=== PATIENT | male | born 1955 | race Caucasian/White ===

== ENCOUNTER → 2016-09-26 | Outpatient (CLI) | payer OTHER, BC ==
[~2016-09-26] MED LIST: ALBU1AER9 INH; GARL400T4 PO; LEVO100T7 PO; LPT40 PO; NARA2.5T2 PO; OMEG10002 PO; PROP40TA5 PO; TIZA2CAP PO; TOPI100T20 PO; VENL150C PO; VENL75CA PO
[2016-09-26 14:24] LABS: THYROID STIMULATING HORMONE 3.26 uIu/ml (0.300-4.500)
== END | disposition home or self-care (01) ==
LOC: C.LABSPEC 16:30
PROVIDERS: ATTEND Family Medicine
DX: E03.9 Hypothyroidism, unspecified (principal)

== ENCOUNTER → 2016-10-18 | Outpatient (CLI) | payer OTHER, BC ==
[2016-10-18 19:26] LABS: ALT/SGPT 14 U/L (12-78); AST/SGOT 24 U/L (15-37); BLOOD UREA NITROGEN 16 mg/dl (7-18); BUN/CREATININE RATIO 11.5 (10-20); CARBON DIOXIDE 26 mmol/L (21-32); CHLORIDE 100 mmol/L (98-107); CHOLESTEROL 156 mg/dl (0-200); GLUCOSE 108 mg/dl (70-99); POTASSIUM 3.7 mmol/L (3.5-5.1); SODIUM 136 mmol/L (136-145); TRIGLYCERIDES 172 mg/dl (0-150); VERY LOW DENSITY LIPOPROT CALC 34 mg/dl
[2016-10-18 19:29] LABS: CHOLESTEROL/HDL RATIO 3.5; HDL CHOLESTEROL 45 mg/dl; LDL CHOLESTEROL CALCULATED 77 mg/dl
== END | disposition home or self-care (01) ==
LOC: C.LABMFLN 07:40
PROVIDERS: ATTEND Internal Medicine
DX: I25.10 Atherosclerotic heart disease of native coronary artery without angina pectoris (principal)

== ENCOUNTER → 2017-02-22 | Outpatient (CLI) | payer OTHER, BC ==
[2017-02-22 13:57] LABS: COMPLETE YES; HEMATOCRIT 40.8 % (42-52); IG% 0.2 %; LYMPH % 27.9 %; MEAN CELL VOLUME 84.3 fL (80-100); MEAN CORPUSCULAR HEMOGLOBIN 29.1 pg (25-34); MEAN CORPUSCULAR HGB CONC 34.6 g/dl (32-36); MEAN PLATELET VOLUME 9.4 fL (7.4-10.4); MONO % 14.8 %; NEUT % 57.1 %; PLATELET COUNT 246 K/uL (130-400); RED BLOOD COUNT 4.84 M/uL (4.7-6.1); WHITE BLOOD COUNT 5.74 K/uL (4.8-10.8)
[2017-02-22 14:45] LABS: BLOOD UREA NITROGEN 22 mg/dl (7-18); GLUCOSE 108 mg/dl (70-99)
[2017-02-22 14:46] LABS: ALT/SGPT 20 U/L (12-78); BUN/CREATININE RATIO 17.1 (10-20); CARBON DIOXIDE 26 mmol/L (21-32); CHLORIDE 101 mmol/L (98-107); CHOLESTEROL 132 mg/dl (0-200); POTASSIUM 2.9 mmol/L (3.5-5.1); SODIUM 138 mmol/L (136-145); TRIGLYCERIDES 137 mg/dl (0-150); VERY LOW DENSITY LIPOPROT CALC 27 mg/dl
[2017-02-22 14:57] LABS: ALKALINE PHOSPHATASE 89 U/L (45-117); AST/SGOT 18 U/L (15-37); CHOLESTEROL/HDL RATIO 3.9; HDL CHOLESTEROL 34 mg/dl; LDL CHOLESTEROL CALCULATED 71 mg/dl; THYROID STIMULATING HORMONE 0.152 uIu/ml (0.300-4.500)
[2017-02-22 18:27] LABS: CALCIUM 9.2 mg/dl (8.5-10.1)
== END | disposition home or self-care (01) ==
LOC: C.LABSPEC 13:14
PROVIDERS: ATTEND Family Medicine
DX: E78.2 Mixed hyperlipidemia (principal); E03.9 Hypothyroidism, unspecified; I10 Essential (primary) hypertension

== ENCOUNTER → 2017-03-19 | Outpatient (CLI) | payer OTHER, BC ==
[2017-03-19 19:08] LABS: THYROID STIMULATING HORMONE 0.372 uIu/ml (0.300-4.500)
== END | disposition home or self-care (01) ==
LOC: C.LABSPEC 18:00
PROVIDERS: ATTEND Family Medicine
DX: E03.9 Hypothyroidism, unspecified (principal)

== ENCOUNTER → 2017-09-11 | Outpatient (CLI) | payer OTHER, BC ==
[~2017-09-11] MED LIST changes: -VENL150C PO; +VENL150C2 PO; -VENL75CA PO; +VENL75CA88 PO
[2017-09-11 12:49] LABS: HEMATOCRIT 42.1 % (42-52); HEMOGLOBIN 14.6 g/dL (14.0-18.0); IG# 0.04 K/uL (0.00-0.02); LYMPH ABS # 1.52 K/uL (1.2-3.4); MEAN CELL VOLUME 85.7 fL (80-100); MEAN CORPUSCULAR HEMOGLOBIN 29.7 pg (25-34); MEAN CORPUSCULAR HGB CONC 34.7 g/dl (32-36); MEAN PLATELET VOLUME 9.3 fL (7.4-10.4); MONO % 11.2 %; MONO ABS # 0.68 K/uL (0.11-0.59); NEUT % 63.1 %; NEUT ABS # 3.83 K/uL (1.4-6.5); PLATELET COUNT 217 K/uL (130-400); RED CELL DISTRIBUTION WIDTH CV 14.5 % (11.5-14.5); RED CELL DISTRIBUTION WIDTH SD 44.7 fL (36.4-46.3); WHITE BLOOD COUNT 6.07 K/uL (4.8-10.8)
[2017-09-11 13:11] LABS: ALBUMIN 4.1 gm/dl (3.4-5.0); ALT/SGPT 18 U/L (12-78); AST/SGOT 15 U/L (15-37); BLOOD UREA NITROGEN 25 mg/dl (7-18); CALCIUM 9.1 mg/dl (8.5-10.1); CARBON DIOXIDE 24 mmol/L (21-32); CREATININE 1.36 mg/dl (0.60-1.40); GLUCOSE 139 mg/dl (70-99); POTASSIUM 3.2 mmol/L (3.5-5.1); SODIUM 138 mmol/L (136-145)
[2017-09-11 13:20] LABS: ALKALINE PHOSPHATASE 95 U/L (45-117); CHOLESTEROL 154 mg/dl (0-200); LDL CHOLESTEROL CALCULATED 75 mg/dl; TOTAL PROTEIN 8.5 gm/dl (6.4-8.2)
== END | disposition home or self-care (01) ==
LOC: C.LABSPEC 12:16
PROVIDERS: ATTEND Family Medicine
DX: I10 Essential (primary) hypertension (principal); E78.2 Mixed hyperlipidemia; E03.9 Hypothyroidism, unspecified

== ENCOUNTER 2019-10-29 08:53 | Inpatient (IN) ==
--- NOTE | 2019-10-09 13:15 | PAT Medication Instructions ---
Medication Instructions Date of Service October 09, 2019 Home Medications atorvastatin 40 mg tablet 80 mg PO QAM candesartan 16 mg tablet 16 mg PO QAM gabapentin 300 mg capsule 600 mg PO TID garlic 1,000 mg capsule 2,000 mg PO QAM hydrochlorothiazide 25 mg tablet 25 mg PO QAM levothyroxine 100 mcg tablet 150 mcg PO QAM multivitamin 1 tab PO QAM omega-3 acid ethyl esters 1 gram capsule 2 cap PO QAM potassium gluconate 600 mg (99 mg) tablet 600 mg PO QAM trazodone 50 mg tablet 100 mg PO HS PRN venlafaxine 150 mg capsule,extended release 24 hr 150 mg PO QAM venlafaxine 75 mg capsule,extended release 24 hr 75 mg PO QAM Botox Injections 1 dose INJ UD acetaminophen [Tylenol Extra Strength] 1,000 mg PO BID PRN metoprolol succinate 25 mg PO QAM Continue as directed Botox Injections 1 dose INJ UD STOP taking 2 weeks before surgery (or as soon as possible if surgery is within 2 weeks)D garlic 1,000 mg capsule 2,000 mg PO QAM omega-3 acid ethyl esters 1 gram capsule 2 cap PO QAM DO NOT take the morning of surgery candesartan 16 mg tablet 16 mg PO QAM hydrochlorothiazide 25 mg tablet 25 mg PO QAM multivitamin 1 tab PO QAM potassium gluconate 600 mg (99 mg) tablet 600 mg PO QAM Take morning of surgery With a small sip of water, OTHERWISE NOTHING TO EAT OR DRINK AFTER MIDNIGHT: atorvastatin 40 mg tablet 80 mg PO QAM gabapentin 300 mg capsule 600 mg PO TID levothyroxine 100 mcg tablet 150 mcg PO QAM venlafaxine 150 mg capsule,extended release 24 hr 150 mg PO QAM venlafaxine 75 mg capsule,extended release 24 hr 75 mg PO QAM acetaminophen [Tylenol Extra Strength] 1,000 mg PO BID PRN (okay to take up to 4 hours prior to surgery if needed) metoprolol succinate 25 mg PO QAM Take evening before surgery gabapentin 300 mg capsule 600 mg PO TID trazodone 50 mg tablet 100 mg PO HS PRN (if needed) acetaminophen [Tylenol Extra Strength] 1,000 mg PO BID PRN (if needed) Other Notes If you have any questions please call us at [phone] or [phone] or [phone] or [phone]
--- NOTE | 2019-10-12 10:58 | Anesthesiology Consultation ---
Date of Service October 12, 2019 Assessment & Plan (1) Encounter for pre-operative examination: Preop CXR: Nodular density in the right middle lobe. This may either represent a focal infiltrate/nodule or a pseudomass with fluid in the right minor fissure. Consider chest CT for better assessment. Note faxed to PCP. Awaiting response from PCP (Dr. Ariel Scott). History Surgery Operation Date: 10/29/19 12:00 Proposed Procedures p Left Total Knee Arthroplasty - Gene Faith MD Height/Weight Height: 5 ft 11 in Weight: 115 kg Allergies Allergy/AdvReac Type Severity Reaction Status Date / Time No Known Drug Allergies Allergy Verified 10/09/19 10:08 Medications Home Medications Medication Instructions Recorded Confirmed Last Taken atorvastatin 40 mg tablet 80 mg PO QAM tab 07/27/19 10/09/19 Unknown candesartan 16 mg tablet 16 mg PO QAM tab 07/27/19 10/09/19 Unknown gabapentin 300 mg capsule 600 mg PO TID cap 07/27/19 10/09/19 Unknown garlic 1,000 mg capsule 2,000 mg PO QAM 07/27/19 10/09/19 Unknown hydrochlorothiazide 25 mg tablet 25 mg PO QAM tab 07/27/19 10/09/19 Unknown levothyroxine 100 mcg tablet 150 mcg PO QAM tab 07/27/19 10/09/19 Unknown multivitamin 1 tab PO QAM 07/27/19 10/09/19 Unknown omega-3 acid ethyl esters 1 gram 2 cap PO QAM cap 07/27/19 10/09/19 Unknown capsule potassium gluconate 600 mg (99 mg) 600 mg PO QAM 07/27/19 10/09/19 Unknown tablet trazodone 50 mg tablet 100 mg PO HS PRN tab 07/27/19 10/09/19 Unknown venlafaxine 150 mg 150 mg PO QAM cap 07/27/19 10/09/19 Unknown capsule,extended release 24 hr venlafaxine 75 mg capsule,extended 75 mg PO QAM cap 07/27/19 10/09/19 Unknown release 24 hr Botox Injections 1 dose INJ UD 10/09/19 10/09/19 Unknown acetaminophen [Tylenol Extra 1,000 mg PO BID PRN 10/09/19 10/09/19 Unknown Strength] metoprolol succinate 25 mg PO QAM 10/09/19 10/09/19 Unknown Past Medical History Medical History (Updated 10/12/19 @ 11:29 by Kacie Beach) Arthritis CAD (coronary artery disease) mild, non-obstructive per 2016 cardiac cath Depression hx (after stroke) Hyperlipidemia Hypertension Hypothyroidism Lyme disease diagnosed 4 years ago s/p abx Obesity Stroke 2011- follows with Dr. Vogel/[facility] [place]- residual severe headaches (receives botox injections q3 months/q2 months cervical nerve block) Exercise / Class Metabolic Activity II 4-5 Yardwork/Stairs/Walk up hill Past Family History Family History Mother Family history of diabetes mellitus Father Family history of diabetes mellitus Past Surgical History Surgical History Anal fissure REPAIR History of cardiac cath 2015= NO STENTS NEEDED History of colonoscopy X 5 History of esophagogastroduodenoscopy (EGD) History of tonsillectomy History of tooth extraction FULL ORAL EXTRACTIONS Previous back surgery LOWER 1997-NO HARDWARE Past Anesthesia History No Hx of Anesthesia Complications and No Family Hx of Anesthesia Complications History of PONV No Hx of PONV and No Hx of Motion Sickness Social History Smoking Status: Never smoker Do You Dip or Chew Tobacco: No (QUIT 2011) Hx Alcohol Use: No Hx Substance Use: No Review of Systems Patient denies chest pain, shortness of breath, dyspnea on exertion, cough, wheezing, palpitations. Physical Exam Vital Signs VITALS BP 127/76 P 69 TEMP 98.8 SP02 95%RA RESP 18 PHYSICAL Full neck and c-spine range of motion. Full TMJ range of motion. TMD 4 finger breaths Mallampati Score 2 Dentition: edentulous, upper plate Lungs: clear throughout to auscultation Cardiac: regular rate and rhythm, no murmurs noted Spine: normal Carotid arteries: negative bruit Extremities: no edema Thick neck Testing Laboratory Results 10/12/19 11:08 10/12/19 11:08 PT 10.3 Seconds (9.0-12.0) 10/12/19 11:08 INR 1.0 (0.9-1.1) 10/12/19 11:08 APTT 23.2 Seconds (21.0-31.0) 10/12/19 11:08 Urine Color Dark Yellow 10/12/19 11:08 Urine Appearance Clear (Clear) 10/12/19 11:08 Urine pH 5.5 (4.5-7.5) 10/12/19 11:08 Ur Specific [place] 1.023 (1.000-1.030) 10/12/19 11:08 Urine Protein Negative (Negative) 10/12/19 11:08 Urine Glucose (UA) Negative (Negative) 10/12/19 11:08 Urine Ketones Negative (Negative) 10/12/19 11:08 Urine Nitrite Negative (Negative) 10/12/19 11:08 Ur Leukocyte Esterase Negative (Negative) 10/12/19 11:08 Blood Type A Positive 10/12/19 11:08 Antibody Screen NEGATIVE 10/12/19 11:08 Electrocardiogram Date: 10/12/19 Findings: + NSR @ (64) Chest X-Ray Date: 10/12/19 Nodular density in the right middle lobe. This may either represent a focal infiltrate/nodule or a pseudomass with fluid in the right minor fissure. Consider chest CT for better assessment. Stress Test Date: 08/18/15 Type: nuclear Gated SPECT images reveal normal myocardial thickening and wall motion. Small- sized reversible defect of mild intensity noted involving apical segment. LVEF 66%. 95% MPHR. *Subsequent cardiac cath 11/2015* Cardiac Catheterization Date: 11/08/15 Dominant: Co-dominant Left Main (% Stenosis): Normal LAD (% Stenosis): Mid (50) D1 (% Stenosis): Normal D2 (% Stenosis): Normal Circumflex (% Stenosis): Normal OM1 (% Stenosis): Mid (50) RCA (% Stenosis): Normal Medical therapy and/or Counseling
--- NOTE | 2019-10-12 11:46 | XRay Report ---
XR chest Pre-admission PA/Lat CLINICAL HISTORY: 64 years-old Male presenting with preoperative assessment. TECHNIQUE: PA and lateral views of the chest were obtained. COMPARISON: None. FINDINGS: Cardiac silhouette top normal in size. Density projects over the right midlung likely within the righ t middle lobe. No other focal opacity. No pleural effusion or pneumothorax. Degenerative changes of t he thoracic spine. Upper abdomen normal. IMPRESSION: 1. Nodular density in the right middle lobe. This may either represent a focal infiltrate/nodule or a pseudomass with fluid in the right minor fissure. Consider chest CT for better assessment. ACT 112: Positive. There are findings on this exam that require communication between the performing entity and the patient following Patient Test Result Information Act ([place] Act 112) guidelines. Electronically signed by: Gene Eckert M.D. 10/12/2019 11:44 AM
[2019-10-12 11:48] LABS: Hematocrit (blood only) 40.6 % (42-52); Hemoglobin 14.1 g/dL (14.0-18.0); Immature Granulocytes # (auto) 0.02 K/uL (0.00-0.02); Immature Granulocytes % (auto) 0.3 %; Lymphocytes # (auto) 1.18 K/uL (1.2-3.4); Lymphocytes % (auto) 19.2 %; Mean Corpuscular Hemoglobin 30.5 pg (25-34); Mean Corpuscular Hgb Conc 34.7 g/dL (32-36); Mean Corpuscular Volume 87.7 fL (80-100); Mean Platelet Volume 9.1 fL (7.4-10.4); Monocytes # (auto) 0.78 K/uL (0.11-0.59); Monocytes % (auto) 12.7 %; Neutrophils # (auto) 4.16 K/uL (1.4-6.5); Neutrophils % (auto) 67.8 %; Platelet Count 213 K/uL (130-400); RDW Coefficient of Variation 14.2 % (11.5-14.5); RDW Standard Deviation 45.1 fL (36.4-46.3); Red Blood Count 4.63 M/uL (4.7-6.1); White Blood Count 6.14 K/uL (4.8-10.8)
[2019-10-12 11:49] LABS: Appearance Urine Clear (Clear); Bilirubin Urine Negative (Negative); Blood Urine Negative (Negative); Color Urine Dark Yellow; Glucose Urine UA Negative (Negative); Ketones Urine Negative (Negative); Leukocyte Esterase Urine Negative (Negative); Nitrite Urine Negative (Negative); Protein Urine Negative (Negative); Specific Gravity Urine 1.023 (1.000-1.030); Urobilinogen Urine Negative (Negative); pH Urine 5.5 (4.5-7.5)
[2019-10-12 11:55] LABS: BUN Creatinine Ratio 14.9 (10-20); Calcium 9.7 mg/dl (8.5-10.1); Creatinine Clr Calc Pharmacy 89.1 ml/min; Est GFR (African American) 83.6; Est GFR (Non-African American) 72.2; Potassium 3.8 mmol/L (3.5-5.1)
[2019-10-12 11:59] LABS: Partial Thromboplastin Ratio 0.9; Partial Thromboplastin Time 23.2 Seconds (21.0-31.0); Prothrombin Time 10.3 Seconds (9.0-12.0)
--- NOTE | 2019-10-12 12:56 | Electrocardiogram Report ---
Test Reason : Blood Pressure : / mmHG Vent. Rate : 064 BPM Atrial Rate : 064 BPM P-R Int : 188 ms QRS Dur : 096 ms QT Int : 404 ms P-R-T Axes : 052 025 021 degrees QTc Int : 416 ms Normal sinus rhythm Normal ECG No previous ECGs available Confirmed by Aleksandr Pitts ([id number]) on 10/12/2019 12:55:37 PM Referred By: Gene Faith Confirmed By:Aleksandr Pitts
--- NOTE | 2019-10-19 14:13 | History & Physical Report ---
Date of Service October 19, 2019 Assessment & Plan (1) Primary osteoarthritis of left knee: Treatment options discussed. Patient has failed conservative measures as above. Risks, benefits and alternatives to surgery including but not limited to infection, DVT, pain, stiffness, need for revision surgery, damage to blood vessels, damage to nerves, PE, , were discussed with the patient and they wish to proceed. Plan will be for left total knee arthroplasty at [facility] on 10/29/19. We will plan on Xarelto for DVT prophylaxis post operatively. He plan on outpatient PT upon discharge from the hospital. All questions answered. He will follow up post operatively. History of Present Illness Chief Complaint: Left knee pain Primary Care Provider: Ariel Tyler Patient is a 64 year old male with PMHx significant for HTN, high cholesterol, CAD, stroke, and hypothyroidism presents with ongoing left knee pain. Pain is affecting his ability to carry out normal daily activities and do the things he wants to do. He has failed conservative therapy including cortisone injections and antiinflammatories. He would like to proceed with left knee replacement. Patient denies sweats, fevers, chills, double vision, blurred vision, cough, sore throat, dysphagia, chest pain, sob, wheezing, n/v/d/c, numbness, tingling, fatigue, urinary symptoms, mood disorders. ROS positive for left knee pain and stiffness, headaches at baseline. Allergies Allergy/AdvReac Type Severity Reaction Status Date / Time No Known Drug Allergies Allergy Verified 10/09/19 10:08 Home Medications Home Medications Medication Instructions Recorded Confirmed Type atorvastatin 40 mg tablet 80 mg PO QAM tab 07/27/19 10/09/19 History candesartan 16 mg tablet 16 mg PO QAM tab 07/27/19 10/09/19 History gabapentin 300 mg capsule 600 mg PO TID cap 07/27/19 10/09/19 History garlic 1,000 mg capsule 2,000 mg PO QAM 07/27/19 10/09/19 History hydrochlorothiazide 25 mg tablet 25 mg PO QAM tab 07/27/19 10/09/19 History levothyroxine 100 mcg tablet 150 mcg PO QAM tab 07/27/19 10/09/19 History multivitamin 1 tab PO QAM 07/27/19 10/09/19 History omega-3 acid ethyl esters 1 gram 2 cap PO QAM cap 07/27/19 10/09/19 History capsule potassium gluconate 600 mg (99 mg) 600 mg PO QAM 07/27/19 10/09/19 History tablet trazodone 50 mg tablet 100 mg PO HS PRN tab 07/27/19 10/09/19 History venlafaxine 150 mg 150 mg PO QAM cap 07/27/19 10/09/19 History capsule,extended release 24 hr venlafaxine 75 mg capsule,extended 75 mg PO QAM cap 07/27/19 10/09/19 History release 24 hr Botox Injections 1 dose INJ UD 10/09/19 10/09/19 History acetaminophen [Tylenol Extra 1,000 mg PO BID PRN 10/09/19 10/09/19 History Strength] metoprolol succinate 25 mg PO QAM 10/09/19 10/09/19 History Past Med/Surg History Medical History Arthritis CAD (coronary artery disease) mild, non-obstructive per 2016 cardiac cath Depression hx (after stroke) Hyperlipidemia Hypertension Hypothyroidism Lyme disease diagnosed 4 years ago s/p abx Obesity Stroke 2011- follows with Dr. Vogel/[facility] [place]- residual severe headaches (receives botox injections q3 months/q2 months cervical nerve block) Surgical History Anal fissure REPAIR History of cardiac cath 2015= NO STENTS NEEDED History of colonoscopy X 5 History of esophagogastroduodenoscopy (EGD) History of tonsillectomy History of tooth extraction FULL ORAL EXTRACTIONS Previous back surgery LOWER 1997-NO HARDWARE Family History Mother Family history of diabetes mellitus Father Family history of diabetes mellitus Social History Preferred Language: Kyrgyz Communication Ability: Effective Baling Machine Tender Required: No Beliefs That Will Affect Care: None Current Living Situation: Alone Other Information That Helps Us Care for You: No Feels Safe at Home: Yes Safety Concerns: Feels Safe At This Time Smoking Status: Never smoker Do You Dip or Chew Tobacco: No (QUIT 2011) ; Second Hand Exposure: No ; Hx Alcohol Use: No Hx Substance Use: No Review of Systems All systems reviewed & are unremarkable except as noted in HPI & below Physical Exam Constitutional: well developed and well nourished; no acute distress Eyes: PERRL, conjunctivae normal, anicteric sclerae ENMT: external ear and nose normal, oropharynx normal Neck: trachea midline, no thyromegaly Respiratory: normal respiratory effort, lungs clear to auscultation Cardiovascular: RRR, no murmur, no edema Musculoskeletal: Left knee: ROM-0-125, mild effusion with tenderness medial joint line. Positive Suyapa's. Stable to valgus and varus stress tests. Skin: no rashes, warm and dry Neurologic: patellar DTR's 2+ bilat, sensation intact Psychiatric: A+Ox3, euthymic affect Results & Data Laboratory Results Lab Results 10/12/19 10/12/19 10/12/19 Range/Units 11:08 11:08 11:08 WBC 6.14 (4.8-10.8) K/uL RBC 4.63 L (4.7-6.1) M/uL Hgb 14.1 (14.0-18.0) g/dL Hct 40.6 L (42-52) % MCV 87.7 (80-100) fL MCH 30.5 (25-34) pg MCHC 34.7 (32-36) g/dL RDW Std Deviation 45.1 (36.4-46.3) fL RDW Coeff of Joann 14.2 (11.5-14.5) % Plt Count 213 (130-400) K/uL MPV 9.1 (7.4-10.4) fL Immature Gran % (Auto) 0.3 % Neut % (Auto) 67.8 % Lymph % (Auto) 19.2 % [place] % (Auto) 12.7 % Eos % (Auto) 0.0 % Baso % (Auto) 0.0 % Immature Gran # (Auto) 0.02 (0.00-0.02) K/uL Neut # (Auto) 4.16 (1.4-6.5) K/uL Lymph # (Auto) 1.18 L (1.2-3.4) K/uL [place] # (Auto) 0.78 H (0.11-0.59) K/uL Eos # (Auto) 0.00 (0-0.5) K/uL Baso # (Auto) 0.00 (0-0.2) K/uL PT 10.3 (9.0-12.0) Seconds INR 1.0 (0.9-1.1) APTT 23.2 (21.0-31.0) Seconds PTT Ratio 0.9 Sodium 138 (136-145) mmol/L Potassium 3.8 (3.5-5.1) mmol/L Chloride 104 (98-107) mmol/L Carbon Dioxide 27 (21-32) mmol/L Anion Gap 7.0 (3-11) BUN 16 (7-18) mg/dl Creatinine 1.08 (0.6-1.4) mg/dl Est Cr Clr Drug Dosing 89.1 ml/min Est GFR ( Amer) 83.6 Est GFR (Non-Af Amer) 72.2 BUN/Creatinine Ratio 14.9 (10-20) Glucose 103 H (70-99) mg/dl Calcium 9.7 (8.5-10.1) mg/dl Urine Color Urine Appearance (Clear) Urine pH (4.5-7.5) Ur Specific [place] (1.000-1.030) Urine Protein (Negative) Urine Glucose (UA) (Negative) Urine Ketones (Negative) Urine Blood (Negative) Urine Nitrite (Negative) Urine Bilirubin (Negative) Urine Urobilinogen (Negative) Ur Leukocyte Esterase (Negative) Blood Type Antibody Screen 10/12/19 10/12/19 Range/Units 11:08 11:08 WBC (4.8-10.8) K/uL RBC (4.7-6.1) M/uL Hgb (14.0-18.0) g/dL Hct (42-52) % MCV (80-100) fL MCH (25-34) pg MCHC (32-36) g/dL RDW Std Deviation (36.4-46.3) fL RDW Coeff of Joann (11.5-14.5) % Plt Count (130-400) K/uL MPV (7.4-10.4) fL Immature Gran % (Auto) % Neut % (Auto) % Lymph % (Auto) % [place] % (Auto) % Eos % (Auto) % Baso % (Auto) % Immature Gran # (Auto) (0.00-0.02) K/uL Neut # (Auto) (1.4-6.5) K/uL Lymph # (Auto) (1.2-3.4) K/uL [place] # (Auto) (0.11-0.59) K/uL Eos # (Auto) (0-0.5) K/uL Baso # (Auto) (0-0.2) K/uL PT (9.0-12.0) Seconds INR (0.9-1.1) APTT (21.0-31.0) Seconds PTT Ratio Sodium (136-145) mmol/L Potassium (3.5-5.1) mmol/L Chloride (98-107) mmol/L Carbon Dioxide (21-32) mmol/L Anion Gap (3-11) BUN (7-18) mg/dl Creatinine (0.6-1.4) mg/dl Est Cr Clr Drug Dosing ml/min Est GFR ( Amer) Est GFR (Non-Af Amer) BUN/Creatinine Ratio (10-20) Glucose (70-99) mg/dl Calcium (8.5-10.1) mg/dl Urine Color Dark Yellow Urine Appearance Clear (Clear) Urine pH 5.5 (4.5-7.5) Ur Specific [place] 1.023 (1.000-1.030) Urine Protein Negative (Negative) Urine Glucose (UA) Negative (Negative) Urine Ketones Negative (Negative) Urine Blood Negative (Negative) Urine Nitrite Negative (Negative) Urine Bilirubin Negative (Negative) Urine Urobilinogen Negative (Negative) Ur Leukocyte Esterase Negative (Negative) Blood Type A Positive Antibody Screen NEGATIVE Diagnostic Findings Left knee: Bone on bone medial compartment with periarticular osteophyte formation and subchondral sclerosis. Of note patient is bone on bone lateral compartment contralateral knee
[~2019-10-29 08:53] MED LIST changes: +ACETAMINOPHEN 500 MG TAB PO SCH; -ALBU1AER9 INH; +BUPIVACAINE 0.25% 30 ML VIAL ONE; +BUPIVACAINE 0.5 % 5 MG/1 ML PF 10ML VIAL ONE; +CEFAZOLIN 2000MG 2,000 MG/15 ML SYR IV SCH; +CeleBREX 200 MG CAP PO SCH; +FAMOTIDINE 20 MG TAB PO SCH; +GABAPENTIN 600 MG DOSE PO SCH; -GARL400T4 PO; -LEVO100T7 PO; -LPT40 PO; +LR 500ML BOLUS, THEN 15ML/HR IV SCH; +METOCLOPRAMIDE HCL 10 MG TABLET PO SCH; -NARA2.5T2 PO; -OMEG10002 PO; +OXYCODONE HCL 10 MG TABCR (OXYCONTIN) PO SCH; -PROP40TA5 PO; +ROPIVACAINE 0.5% HCL/PF 150 MG, BUPIVACAINE 0.5% MPF 30 ML, EPINEPHrine 30MG/30ML (OR U... INSTIL SCH; -TIZA2CAP PO; -TOPI100T20 PO; -VENL150C2 PO; -VENL75CA88 PO
[2019-10-29] MEDS ORDERED: ONDANSETRON INJ 2 MG/ML 2 ML VIAL ONE (09:14)
[2019-10-29] MEDS ORDERED: MIDAZOLAM HCL 1 MG/ML 2ML VIAL ONE (09:14)
[2019-10-29] MEDS ORDERED: LIDOCAINE HCL 2% 2 ML VIAL/AMP(20MG/ML) INFIL ONE (09:14)
[2019-10-29] MEDS ORDERED: PROPOFOL IV EMULSION 10 MG/ML 20 ML VIAL IV ONE ×2 (09:14→11:42)
[2019-10-29] MEDS ORDERED: fentaNYL citrate 100 MCG/2 ML VIAL ONE (09:14)
--- NOTE | 2019-10-29 09:23 | History & Physical Bridge Note ---
Date of Service October 29, 2019 History & Physical Bridge Note I have examined the patient, reviewed the History & Physical and in the interval since the performance of the History & Physical I have noted the following changes of clinical significance: no changes noted
[2019-10-29] MEDS ORDERED: ORTHO JOINT ANESTHETIC ONE (09:55)
[2019-10-29] MEDS ORDERED: BACITRACIN INJ 50,000 UNIT VIAL ONE (09:55)
[2019-10-29] MEDS ORDERED: ePHEDrine sulfate 50 MG/ML AMP IV PRN (10:02)
[2019-10-29] MEDS ORDERED: ATROPINE SULFATE 0.1 MG/ML 10ML SYR IV PRN (10:02)
[2019-10-29] MEDS ORDERED: ONDANSETRON INJ 2 MG/ML 2 ML VIAL IV PRN ×2 (10:02→14:34)
[2019-10-29] MEDS ORDERED: fentaNYL citrate 100 MCG/2 ML VIAL IV PRN (10:02)
--- NOTE | 2019-10-29 12:15 | Operative Report ---
Post Operative Report Pre & Post Diagnosis Operation Date: 10/29/19 10:50 Pre-Op Diagnosis: Primary osteoarthritis of left knee Post-Op Diagnosis: Primary osteoarthritis of left knee I identified the patient and participated in the time-out.: Yes Procedure Operation Date: 10/29/19 10:50 Actual Procedures p Left Total Knee Arthroplasty(Left) - Gene Faith MD Surgeon Gene Faith MD Service Desk Manager Adan Aguirre PA-C Estimated Blood Loss 20 Findings Consistent with Post-Op Diagnosis Specimens Bone and tissue Drains 2 hemovac Anesthesia Type MAC Spinal Regional Complications none Disposition Accompanied Patient To Recovery: No Disposition: Recovery Room Indications The patient is a 64-year-old male osteoarthritic change of the left knee. He has [id number] medial compartment. He has tricompartment arthritic change in the rest of the knee. He is failed conservative measures including injection, anti-inflammatories, rehab. He wishes to proceed with a left total knee arthroplasty. Description of Procedure Risks benefits and alternatives of surgery including but not limited to infection, DVT, pain, stiffness, need for surgery, damage to blood vessels, damage to nerves or risks of anesthesia were discussed with the patient and they wished to proceed. The patient was identified and the laterality was confirmed and marked. They received a preoperative antibiotic as well as a spinal anesthetic and an abductor canal block. A well-padded tourniquet was applied and then the limb was prepped and draped in standard manner with ChloraPrep. The limb was exsanguinated and the tourniquet was inflated. I made a standard anterior incision. I sharply incised the skin then utilized Bovie electrocautery to achieve hemostasis. I made a medial parapatellar arthrotomy and mobilized the patella laterally. I then excised the anterior horns of the medial and lateral meniscus as well as the infrapatellar fat pad. I elevated a portion of the MCL off of the tibia. I then pinned into place a patient-matched distal femoral cutting guide and made my distal femoral resection. I then pinned into place the 5 in 1 femoral cutting guide. I made my anterior, posterior and chamfer cuts. I then excised the cruciates and the remaining portions of the menisci. I then pinned into place a patient- matched tibial cutting guide and made my tibial resection. I then pinned into place the tibial plate a utilizing alignment matt to confirm rotation. I then cut for the post. Utilizing a lamina work checker and I then removed posterior osteophytes off the femur. I then placed a trial femur into position and cut for the trochlear component. I had trouble getting the 9 mm poly-into position. He was tight in both flexion as well as in extension. I placed a 2 mm revision tibial cutting guide in place and took an additional 2 mm off of the tibia. I then sequentially trialed to size the polyethylene until there was good soft tissue balancing and range of motion. I then prepared the patella with a freehand cut utilizing sagittal saw. I sized and drilled for the patella. There was good tracking to the patella no lateral release was needed. All the trial components were removed. The deep tissues were anesthetized with an ortho mix solution. Then with Simplex HV with gentamicin cement, I cemented my definitive components. Definitive components, Emerson and Nephew Bette 2: Femur 8 Tibia 7 Poly 10 Patella 35 oval A betadine soak was performed. A deep drain was placed. The arthrotomy was closed with interrupted #1 Vicryl suture subcutaneous tissue was closed with interrupted 2-0 Vicryl suture. The skin was closed with with william. An Acticoat and Xavier dressing were placed. Sterile dressings were applied. All needle and sponge counts were correct at the end of the procedure patient was transferred to the PACU in stable condition without apparent complication. The PA-C was necessary for assistance with procedure for assistance in positioning, prepping, draping, retraction and closure. I attest to the content of the Intraoperative Record and any orders documented therein. Any exceptions are noted below.
--- NOTE | 2019-10-29 13:24 | XRay Report ---
TWO VIEWS LEFT KNEE CLINICAL HISTORY: Postoperative examination. FINDINGS: AP and crosstable lateral portable views of the left knee are obtained. A left knee arthrop lasty is in near anatomic alignment. There has been undersurface remodeling of the patella. No acute fracture is seen. There are expected postoperative changes around the knee including skin clips, a davila rgical drain, soft tissue edema, and subcutaneous gas. IMPRESSION: Expected postoperative changes status post left knee arthroplasty. No acute fracture is s een. ACT 112: Negative or not required by law. Electronically signed by: Johnny Rousseau M.D. 10/29/2019 1:23 PM
--- NOTE | 2019-10-29 14:11 | Anesthesiology Progress Note ---
Date of Service October 29, 2019 Anesthesia Post Procedure Vital Signs Vital Signs: Temp Pulse Pulse Resp BP Pulse Ox 10/29/19 13:45 36.6 C 66 13 99/66 L 99 10/29/19 13:35 36.6 C 60 20 99/70 L 96 10/29/19 13:25 36.6 C 62 15 97/66 L 97 10/29/19 13:15 66 13 104/65 96 10/29/19 13:05 62 13 97/63 L 97 10/29/19 12:58 36.2 C L 71 18 101/60 97 10/29/19 09:37 36.9 C 60 18 124/73 93 Pain Intensity Left Knee: Pain Intensity: 0 Transfer of Care Handoff Completed per policy Notes Mental Status: alert / awake / arousable and participated in evaluation Nausea / Vomiting: adequately controlled Pain: adequately controlled Airway Patency, RR, SpO2: stable & adequate BP & HR: stable & adequate Hydration State: stable & adequate Neuraxial Anesthesia: was administered and sensory block is resolving Anesthetic Complications: no major complications apparent and Pt Satisfied with anesthetic care
[2019-10-29] MEDS ORDERED: TAMSULOSIN HCL 0.4 MG CAP PO PRN (14:34)
[2019-10-29] MEDS ORDERED: bisacodyL 10 MG SUPP PR PRN (14:34)
[2019-10-29] MEDS ORDERED: MAGNESIUM HYDROXIDE SUSP 30 ML UDC PO PRN (14:34)
[2019-10-29] MEDS ORDERED: HYDROmorphone INJ 0.5 MG/0.5 ML SYR IV PRN (14:34)
[2019-10-29] MEDS ORDERED: NALOXONE HCL 0.4 MG/1 ML VIAL/CARP IV PRN (14:34)
[2019-10-29] MEDS: SODIUM CHLORIDE 0.9% 1000ML 1,000 ML IV SCH (15:57)
[2019-10-29] MEDS: GABAPENTIN 600 MG TAB PO SCH ×2 (15:58→20:26)
[2019-10-29] MEDS: ACETAMINOPHEN 500 MG TAB PO SCH (15:58)
[2019-10-29] MEDS: CEFAZOLIN 2000MG 2,000 MG/15 ML SYR IV SCH (18:07)
[2019-10-29] MEDS: DOCUSATE SODIUM 100 MG CAP PO SCH (20:25)
[2019-10-29] MEDS: SENNA 8.6 MG TAB PO SCH (20:25)
[2019-10-30] MEDS: ACETAMINOPHEN 500 MG TAB PO SCH ×3 (00:25→15:24)
[2019-10-30] MEDS: SODIUM CHLORIDE 0.9% 1000ML 1,000 ML IV SCH (00:27)
[2019-10-30] MEDS: TRAZODONE HCL 100 MG TAB PO PRN (00:28)
[2019-10-30] MEDS: CEFAZOLIN 2000MG 2,000 MG/15 ML SYR IV SCH (03:29)
[2019-10-30] MEDS: LEVOTHYROXINE SODIUM 150 MCG TABLET PO SCH (06:09)
[2019-10-30 06:15] LABS: Hematocrit (blood only) 31.3 % (42-52); Hemoglobin 10.6 g/dL (14.0-18.0); Mean Corpuscular Hemoglobin 30.2 pg (25-34); Mean Corpuscular Hgb Conc 33.9 g/dL (32-36); Mean Corpuscular Volume 89.2 fL (80-100); Mean Platelet Volume 9.4 fL (7.4-10.4); Platelet Count 182 K/uL (130-400); RDW Coefficient of Variation 13.7 % (11.5-14.5); RDW Standard Deviation 44.2 fL (36.4-46.3); Red Blood Count 3.51 M/uL (4.7-6.1); White Blood Count 9.64 K/uL (4.8-10.8)
[2019-10-30 06:48] LABS: Calcium 8.3 mg/dl (8.5-10.1); Creatinine Clr Calc Pharmacy 77.7 ml/min; Est GFR (African American) 71.5; Est GFR (Non-African American) 61.7; Potassium 3.9 mmol/L (3.5-5.1)
--- NOTE | 2019-10-30 07:23 | Orthopedic Progress Note ---
Date of Service October 30, 2019 Assessment & Plan (1) S/P total knee arthroplasty: POD#1 Left TKA -PT/OT -Pain management -DVT prophylaxis-Xarelto 10mg daily -AM labs-hemoglobin of 10.6 this am, ABL likely due to surgical loss vs dilutional effect -D/C planning-home with plans on OPPT possibly later today if PT goes well and hemovac output is acceptable. Admission and Anticipated Discharge Date Admission Date: October 29, 2019 Subjective Patient is POD#1 left TKA. He is doing well this morning, starting to get some anterior knee pain. States he was up walking around quite a bit yesterday. Review of Systems Review of Systems: All systems reviewed & are unremarkable except as noted in HPI & below Physical Exam Physical Exam: Patient resting in bed comfortably. Dressing is c/d/i, hemovac and MARIA INES in place. No calf tenderness. Toes mobile, good dorsiflexion. Constitutional: well developed and well nourished; no acute distress Results & Data ([facility]) Vital Signs (Past 12 Hours) Vital Signs Temp Pulse Resp BP Pulse Ox 10/30/19 03:29 36.6 C 60 16 98/57 L 95 10/29/19 23:21 36.7 C 57 L 16 95/56 L 96 10/29/19 20:38 64 93 10/29/19 20:29 36.8 C 20 108/67 Laboratory Results H & H 10/12/19 10/30/19 Range/Units 11:08 05:56 Hgb 14.1 10.6 L (14.0-18.0) g/dL Hct 40.6 L 31.3 L (42-52) % Coagulation 10/12/19 Range/Units 11:08 INR 1.0 (0.9-1.1)
--- NOTE | 2019-10-30 07:57 | Anesthesiology Progress Note ---
Date of Service October 30, 2019 Anesthesia Post Procedure Vital Signs Vital Signs: Temp Pulse Pulse Resp BP Pulse Ox 10/30/19 03:29 36.6 C 60 16 98/57 L 95 10/29/19 23:21 36.7 C 57 L 16 95/56 L 96 10/29/19 20:38 64 93 10/29/19 20:29 36.8 C 20 108/67 10/29/19 16:01 70 16 124/73 97 10/29/19 15:00 36.5 C 72 16 126/72 94 10/29/19 14:38 36.6 C 67 16 111/73 2 L 10/29/19 13:45 36.6 C 66 13 99/66 L 99 10/29/19 13:35 36.6 C 60 20 99/70 L 96 10/29/19 13:25 36.6 C 62 15 97/66 L 97 10/29/19 13:15 66 13 104/65 96 10/29/19 13:05 62 13 97/63 L 97 10/29/19 12:58 36.2 C L 71 18 101/60 97 10/29/19 09:37 36.9 C 60 18 124/73 93 Pain Intensity Left Knee: Pain Intensity: 0 Notes Mental Status: alert / awake / arousable and participated in evaluation Patient Amnestic to Procedure: Yes Nausea / Vomiting: adequately controlled Pain: adequately controlled Airway Patency, RR, SpO2: stable & adequate BP & HR: stable & adequate Hydration State: stable & adequate Neuraxial Anesthesia: was administered and sensory block resolved Anesthetic Complications: no major complications apparent and Pt Satisfied with anesthetic care
[2019-10-30] MEDS: GABAPENTIN 600 MG TAB PO SCH ×3 (08:50→20:06)
[2019-10-30] MEDS: METOPROLOL SUCC 25MG EXT REL TAB PO SCH (08:53)
[2019-10-30] MEDS: DOCUSATE SODIUM 100 MG CAP PO SCH ×2 (08:55→20:06)
[2019-10-30] MEDS: VENLAFAXINE HCL XR 150 MG CAPXR PO SCH (08:55)
[2019-10-30] MEDS: VENLAFAXINE HCL XR 75 MG CAPXR PO SCH (08:55)
[2019-10-30] MEDS: hydroCHLOROthiazide 25 MG TAB PO SCH (08:55)
[2019-10-30] MEDS: RIVAROXABAN 10 MG TABLET PO SCH (08:56)
[2019-10-30] MEDS: MULTIVITAMIN TAB PO SCH (08:56)
[2019-10-30] MEDS: ATORVASTATIN 40 MG TAB PO SCH (08:56)
[2019-10-30] MEDS ORDERED: MULTIVITAMIN TAB PO SCH (09:00)
[2019-10-30] MEDS: OXYCODONE HCL IR 5 MG TAB (IMMEDIATE RELEASE) PO PRN (19:02)
[2019-10-30] MEDS: SENNA 8.6 MG TAB PO SCH (20:06)
[2019-10-31] MEDS: ACETAMINOPHEN 500 MG TAB PO SCH ×2 (00:28→07:37)
[2019-10-31] MEDS: TRAZODONE HCL 100 MG TAB PO PRN (01:08)
[2019-10-31] MEDS: LEVOTHYROXINE SODIUM 150 MCG TABLET PO SCH (05:21)
[2019-10-31] MEDS: OXYCODONE HCL IR 5 MG TAB (IMMEDIATE RELEASE) PO PRN ×2 (05:22→07:41)
--- NOTE | 2019-10-31 06:30 | Orthopedic Progress Note ---
Date of Service October 31, 2019 Assessment & Plan (1) S/P total knee arthroplasty: POD#2 Left TKA -PT/OT -Pain management -DVT prophylaxis-Xarelto 10mg daily -plan on d/c home later today withOPPT at [facility] Admission and Anticipated Discharge Date Admission Date: October 29, 2019 Subjective Patient is POD#2 left TKA. He is doing well this morning, denies CP/SOB Physical Exam Physical Exam: Vital Signs Temp 36.7 C 10/31/19 00:13 Pulse 60 10/31/19 00:13 Resp 18 10/31/19 00:13 BP 122/67 10/31/19 00:13 Pulse Ox 97 10/31/19 00:13 Intake & Output 10/30/19 10/30/19 10/31/19 06:59 18:59 06:59 Intake Total 1350.000 / 3650.00 0 1603.333 / 2128.33 3 525 / 2128.333 Output Total 1060 / 1901 410 / 660 250 / 660 Balance 290.000 / 9035.383 2734.333 / 1468.33 3 275 / 1468.333 Intake: IV 850.000 / 1350.000 853.333 / 853.333 Nss 1000ML 1,0 00 ml @ 100 mls/ 850.000 / 850.000 853.333 / 853.333 hr IV .Q10H SC H Rx#:[id number] Oral 500 / 500 750 / 1275 525 / 1275 Output: Urine 600 / 950 200 / 200 Drain Output 460 / 931 210 / 460 250 / 460 Knee Hemovac # 1 460 / 931 210 / 460 250 / 460 Other: # Unmeasured Voi ds 1 1 Constitutional: WD/WN, vitals as above no acute distress Musculoskeletal: left leg:NVDI, calf SNT, negative rachael sign. DP palpable, able to wiggle toes/ankle movement without difficulty. MARIA INES dressing clean dry and intact. expected post-operative bruising noted. Results & Data ([facility]) Vital Signs (Past 12 Hours) Vital Signs Temp Pulse Resp BP BP Pulse Ox 10/31/19 00:13 36.7 C 60 18 122/67 97 10/30/19 19:53 36.8 C 63 16 122/71 94 Laboratory Results Laboratory Results WBC 9.64 K/uL (4.8-10.8) 10/30/19 05:56 RBC 3.51 M/uL (4.7-6.1) L 10/30/19 05:56 Hgb 10.6 g/dL (14.0-18.0) L 10/30/19 05:56 Hct 31.3 % (42-52) L 10/30/19 05:56 MCV 89.2 fL (80-100) 10/30/19 05:56 MCH 30.2 pg (25-34) 10/30/19 05:56 MCHC 33.9 g/dL (32-36) 10/30/19 05:56 RDW Std Deviation 44.2 fL (36.4-46.3) 10/30/19 05:56 RDW Coeff of Joann 13.7 % (11.5-14.5) 10/30/19 05:56 Plt Count 182 K/uL (130-400) 10/30/19 05:56 MPV 9.4 fL (7.4-10.4) 10/30/19 05:56 Immature Gran % (Auto) 0.3 % 10/12/19 11:08 Neut % (Auto) 67.8 % 10/12/19 11:08 Lymph % (Auto) 19.2 % 10/12/19 11:08 Richardson % (Auto) 12.7 % 10/12/19 11:08 Eos % (Auto) 0.0 % 10/12/19 11:08 Baso % (Auto) 0.0 % 10/12/19 11:08 Immature Gran # (Auto) 0.02 K/uL (0.00-0.02) 10/12/19 11:08 Neut # (Auto) 4.16 K/uL (1.4-6.5) 10/12/19 11:08 Lymph # (Auto) 1.18 K/uL (1.2-3.4) L 10/12/19 11:08 Richardson # (Auto) 0.78 K/uL (0.11-0.59) H 10/12/19 11:08 Eos # (Auto) 0.00 K/uL (0-0.5) 10/12/19 11:08 Baso # (Auto) 0.00 K/uL (0-0.2) 10/12/19 11:08 PT 10.3 Seconds (9.0-12.0) 10/12/19 11:08 INR 1.0 (0.9-1.1) 10/12/19 11:08 APTT 23.2 Seconds (21.0-31.0) 10/12/19 11:08 PTT Ratio 0.9 10/12/19 11:08 Sodium 138 mmol/L (136-145) 10/30/19 05:56 Potassium 3.9 mmol/L (3.5-5.1) 10/30/19 05:56 Chloride 107 mmol/L (98-107) 10/30/19 05:56 Carbon Dioxide 26 mmol/L (21-32) 10/30/19 05:56 Anion Gap 6.0 (3-11) 10/30/19 05:56 BUN 23 mg/dl (7-18) H 10/30/19 05:56 Creatinine 1.23 mg/dl (0.6-1.4) 10/30/19 05:56 Est Cr Clr Drug Dosing 77.7 ml/min 10/30/19 05:56 Est GFR ( Amer) 71.5 10/30/19 05:56 Est GFR (Non-Af Amer) 61.7 10/30/19 05:56 BUN/Creatinine Ratio 19.0 (10-20) 10/30/19 05:56 Glucose 133 mg/dl (70-99) H 10/30/19 05:56 Calcium 8.3 mg/dl (8.5-10.1) L 10/30/19 05:56 Urine Color Dark Yellow 10/12/19 11:08 Urine Appearance Clear (Clear) 10/12/19 11:08 Urine pH 5.5 (4.5-7.5) 10/12/19 11:08 Ur Specific Whitefield 1.023 (1.000-1.030) 10/12/19 11:08 Urine Protein Negative (Negative) 10/12/19 11:08 Urine Glucose (UA) Negative (Negative) 10/12/19 11:08 Urine Ketones Negative (Negative) 10/12/19 11:08 Urine Blood Negative (Negative) 10/12/19 11:08 Urine Nitrite Negative (Negative) 10/12/19 11:08 Urine Bilirubin Negative (Negative) 10/12/19 11:08 Urine Urobilinogen Negative (Negative) 10/12/19 11:08 Ur Leukocyte Esterase Negative (Negative) 10/12/19 11:08 Hepatitis C Ab Screen Neg (Neg) 10/29/19 11:08 Blood Type A Positive 10/12/19 11:08 Antibody Screen NEGATIVE 10/12/19 11:08
[2019-10-31] MEDS: MULTIVITAMIN TAB PO SCH (07:33)
[2019-10-31] MEDS: hydroCHLOROthiazide 25 MG TAB PO SCH (07:33)
[2019-10-31] MEDS: VENLAFAXINE HCL XR 150 MG CAPXR PO SCH (07:33)
[2019-10-31] MEDS: DOCUSATE SODIUM 100 MG CAP PO SCH (07:33)
[2019-10-31] MEDS: RIVAROXABAN 10 MG TABLET PO SCH (07:34)
[2019-10-31] MEDS: METOPROLOL SUCC 25MG EXT REL TAB PO SCH (07:36)
[2019-10-31] MEDS: ATORVASTATIN 40 MG TAB PO SCH (07:36)
[2019-10-31] MEDS: VENLAFAXINE HCL XR 75 MG CAPXR PO SCH (07:37)
[2019-10-31] MEDS: GABAPENTIN 600 MG TAB PO SCH (07:37)
--- NOTE | 2019-10-31 13:41 | Discharge Summary ---
Date of Service October 31, 2019 Admission HPI Per Admitting Provider Patient is a 64 year old male with PMHx significant for HTN, high cholesterol, CAD, stroke, and hypothyroidism presents with ongoing left knee pain. Pain is affecting his ability to carry out normal daily activities and do the things he wants to do. He has failed conservative therapy including cortisone injections and antiinflammatories. He would like to proceed with left knee replacement. Patient denies sweats, fevers, chills, double vision, blurred vision, cough, sore throat, dysphagia, chest pain, sob, wheezing, n/v/d/c, numbness, tingling, fatigue, urinary symptoms, mood disorders. ROS positive for left knee pain and stiffness, headaches at baseline. Admission Exam Per Admitting Provider Constitutional: well developed and well nourished; no acute distress Eyes: PERRL, conjunctivae normal, anicteric sclerae ENMT: external ear and nose normal, oropharynx normal Neck: trachea midline, no thyromegaly Respiratory: normal respiratory effort, lungs clear to auscultation Cardiovascular: RRR, no murmur, no edema Musculoskeletal: Left knee: ROM-0-125, mild effusion with tenderness medial joint line. Positive Suyapa's. Stable to valgus and varus stress tests. Skin: no rashes, warm and dry Neurologic: patellar DTR's 2+ bilat, sensation intact Psychiatric: A+Ox3, euthymic affect Principal Diagnosis Left knee osteoarthritis Discharge Exam Constitutional well developed and well nourished; no acute distress Eyes PERRL, conjunctivae normal, anicteric sclerae ENMT external ear and nose normal, oropharynx normal Neck trachea midline, no thyromegaly Respiratory normal respiratory effort, lungs clear to auscultation Cardiovascular RRR, no murmur, no edema Skin no rashes, warm and dry Neurologic patellar DTR's 2+ bilat, sensation intact Psychiatric A+Ox3, euthymic affect Discharge Data Allergies Allergy/AdvReac Type Severity Reaction Status Date / Time No Known Drug Allergies Allergy Verified 10/29/19 09:31 Consultations 10/29/19 14:34 Consult Case Management - Discharge Planning Routine Procedures Performed Operation Date: 10/29/19 10:50 Actual Procedures p Left Total Knee Arthroplasty(Left) - Gene Faith MD Ordered Studies 10/29/19 05:00 US - OR guided needle placemen Routine Hospital Course (1) S/P total knee arthroplasty: Patient presented for same day admission following left total knee arthroplasty on 10/29/19. He tolerated procedure well. The Patient had an uneventful hospital course. Post-operatively, his activity was progressed and well tolerated. They participated in PT with ambulation distance of 300 feet. ROM of operative knee reached 100 degrees. Labs remained stable- lowest hemoglobin recorded: 10.6. Pain controlled on oral medications. Please refer to daily progress notes and PT notes for complete details. He did have a moderate amount of drainage from hemovac so this was continued until POD#2. After exam on 10/31/19, patient was felt to be stable for discharge home with plans on outpatient PT. Patient will f/u in the office in about 2 weeks for further e valuation including x-rays and incision check, sooner if having any issues or concerns. Lab Results 10/12/19 10/12/19 10/12/19 Range/Units 11:08 11:08 11:08 WBC 6.14 (4.8-10.8) K/uL RBC 4.63 L (4.7-6.1) M/uL Hgb 14.1 (14.0-18.0) g/dL Hct 40.6 L (42-52) % MCV 87.7 (80-100) fL MCH 30.5 (25-34) pg MCHC 34.7 (32-36) g/dL RDW Std Deviation 45.1 (36.4-46.3) fL RDW Coeff of Joann 14.2 (11.5-14.5) % Plt Count 213 (130-400) K/uL MPV 9.1 (7.4-10.4) fL Immature Gran % (Auto) 0.3 % Neut % (Auto) 67.8 % Lymph % (Auto) 19.2 % Sunflower % (Auto) 12.7 % Eos % (Auto) 0.0 % Baso % (Auto) 0.0 % Immature Gran # (Auto) 0.02 (0.00-0.02) K/uL Neut # (Auto) 4.16 (1.4-6.5) K/uL Lymph # (Auto) 1.18 L (1.2-3.4) K/uL Sunflower # (Auto) 0.78 H (0.11-0.59) K/uL Eos # (Auto) 0.00 (0-0.5) K/uL Baso # (Auto) 0.00 (0-0.2) K/uL PT 10.3 (9.0-12.0) Seconds INR 1.0 (0.9-1.1) APTT 23.2 (21.0-31.0) Seconds PTT Ratio 0.9 Sodium 138 (136-145) mmol/L Potassium 3.8 (3.5-5.1) mmol/L Chloride 104 (98-107) mmol/L Carbon Dioxide 27 (21-32) mmol/L Anion Gap 7.0 (3-11) BUN 16 (7-18) mg/dl Creatinine 1.08 (0.6-1.4) mg/dl Est Cr Clr Drug Dosing 89.1 ml/min Est GFR ( Amer) 83.6 Est GFR (Non-Af Amer) 72.2 BUN/Creatinine Ratio 14.9 (10-20) Glucose 103 H (70-99) mg/dl Calcium 9.7 (8.5-10.1) mg/dl Urine Color Urine Appearance (Clear) Urine pH (4.5-7.5) Ur Specific Gypsy (1.000-1.030) Urine Protein (Negative) Urine Glucose (UA) (Negative) Urine Ketones (Negative) Urine Blood (Negative) Urine Nitrite (Negative) Urine Bilirubin (Negative) Urine Urobilinogen (Negative) Ur Leukocyte Esterase (Negative) Hepatitis C Ab Screen (Neg) Blood Type Antibody Screen 10/12/19 10/12/19 10/29/19 Range/Units 11:08 11:08 11:08 WBC (4.8-10.8) K/uL RBC (4.7-6.1) M/uL Hgb (14.0-18.0) g/dL Hct (42-52) % MCV (80-100) fL MCH (25-34) pg MCHC (32-36) g/dL RDW Std Deviation (36.4-46.3) fL RDW Coeff of Joann (11.5-14.5) % Plt Count (130-400) K/uL MPV (7.4-10.4) fL Immature Gran % (Auto) % Neut % (Auto) % Lymph % (Auto) % Sunflower % (Auto) % Eos % (Auto) % Baso % (Auto) % Immature Gran # (Auto) (0.00-0.02) K/uL Neut # (Auto) (1.4-6.5) K/uL Lymph # (Auto) (1.2-3.4) K/uL Sunflower # (Auto) (0.11-0.59) K/uL Eos # (Auto) (0-0.5) K/uL Baso # (Auto) (0-0.2) K/uL PT (9.0-12.0) Seconds INR (0.9-1.1) APTT (21.0-31.0) Seconds PTT Ratio Sodium (136-145) mmol/L Potassium (3.5-5.1) mmol/L Chloride (98-107) mmol/L Carbon Dioxide (21-32) mmol/L Anion Gap (3-11) BUN (7-18) mg/dl Creatinine (0.6-1.4) mg/dl Est Cr Clr Drug Dosing ml/min Est GFR ( Amer) Est GFR (Non-Af Amer) BUN/Creatinine Ratio (10-20) Glucose (70-99) mg/dl Calcium (8.5-10.1) mg/dl Urine Color Dark Yellow Urine Appearance Clear (Clear) Urine pH 5.5 (4.5-7.5) Ur Specific Gypsy 1.023 (1.000-1.030) Urine Protein Negative (Negative) Urine Glucose (UA) Negative (Negative) Urine Ketones Negative (Negative) Urine Blood Negative (Negative) Urine Nitrite Negative (Negative) Urine Bilirubin Negative (Negative) Urine Urobilinogen Negative (Negative) Ur Leukocyte Esterase Negative (Negative) Hepatitis C Ab Screen Neg (Neg) Blood Type A Positive Antibody Screen NEGATIVE 10/30/19 10/30/19 Range/Units 05:56 05:56 WBC 9.64 (4.8-10.8) K/uL RBC 3.51 L (4.7-6.1) M/uL Hgb 10.6 L (14.0-18.0) g/dL Hct 31.3 L (42-52) % MCV 89.2 (80-100) fL MCH 30.2 (25-34) pg MCHC 33.9 (32-36) g/dL RDW Std Deviation 44.2 (36.4-46.3) fL RDW Coeff of Joann 13.7 (11.5-14.5) % Plt Count 182 (130-400) K/uL MPV 9.4 (7.4-10.4) fL Immature Gran % (Auto) % Neut % (Auto) % Lymph % (Auto) % Sunflower % (Auto) % Eos % (Auto) % Baso % (Auto) % Immature Gran # (Auto) (0.00-0.02) K/uL Neut # (Auto) (1.4-6.5) K/uL Lymph # (Auto) (1.2-3.4) K/uL Sunflower # (Auto) (0.11-0.59) K/uL Eos # (Auto) (0-0.5) K/uL Baso # (Auto) (0-0.2) K/uL PT (9.0-12.0) Seconds INR (0.9-1.1) APTT (21.0-31.0) Seconds PTT Ratio Sodium 138 (136-145) mmol/L Potassium 3.9 (3.5-5.1) mmol/L Chloride 107 (98-107) mmol/L Carbon Dioxide 26 (21-32) mmol/L Anion Gap 6.0 (3-11) BUN 23 H (7-18) mg/dl Creatinine 1.23 (0.6-1.4) mg/dl Est Cr Clr Drug Dosing 77.7 ml/min Est GFR ( Amer) 71.5 Est GFR (Non-Af Amer) 61.7 BUN/Creatinine Ratio 19.0 (10-20) Glucose 133 H (70-99) mg/dl Calcium 8.3 L (8.5-10.1) mg/dl Urine Color Urine Appearance (Clear) Urine pH (4.5-7.5) Ur Specific Gypsy (1.000-1.030) Urine Protein (Negative) Urine Glucose (UA) (Negative) Urine Ketones (Negative) Urine Blood (Negative) Urine Nitrite (Negative) Urine Bilirubin (Negative) Urine Urobilinogen (Negative) Ur Leukocyte Esterase (Negative) Hepatitis C Ab Screen (Neg) Blood Type Antibody Screen (2) Primary osteoarthritis of left knee: Total Time Total Time Spent Total Time Spent (In Minutes): 20 Discharge Plan Discharge Items Patient Disposition: Home - Self-Care Reason For Visit: Osteoarthritis, Left Knee Discharge Diagnosis: Left knee osteoarthritis Condition on Discharge: Good Activity: Per Instructions section Weightbearing: Full weightbearing and Left weightbearing Non-emergency contact: Surgeon Call non-emergency contact if: you have any medication questions, your pain is not controlled, your pain is concerning for you, you have a fever, your temperature is above 101, your wound has increased redness and your wound pain has increased Follow-up/Referrals: Ariel Scott DO [Primary Care Provider] - Diet: Regular Addtl Attending Provider Instructions: ACTIVITY RECOMMENDATIONS: SELF CARE INSTRUCTIONS AFTER TOTAL KNEE REPLACEMENT A. You may need to continue a physical therapy program after discharge from the hospital. There are several options available to you. Your doctor will assist you in selecting the best one for you. 1. An out-patient facility 2 to 3 times a week for therapy or home therapy. 2. Continue working on all exercises taught to you in the hospital. Your goals should be to increase bending of your knee to 90 degrees and beyond and to fully straighten your knee. B. You may progress at your own pace from walking with a walker or crutches to a cane; then to no assistive devices. C. Make walking a part of your daily routine. Be up as much as comfortable with rest periods throughout the day. Rest with leg elevation is very important. Use the ice wrap frequently for the first 3-4 weeks. D. There are no restrictions on activities. You may ride in a car, shop, p articipate in switch operator and all social activities. E. Wear the long elastic stockings (JEWEL hose) 20 hours a day for 2 weeks after surgery. They can be removed several times a day for laundering and for a bath. F. You may shower, no tub baths until cleared by your doctor. SPECIAL CARE INSTRUCTIONS: VERY IMPORTANT TO READ AND REVIEW A. There are a few signs you need to watch for after you are home. Call [facility] if you notice any of the followin. Increased severe knee pain. Some pain is expected especially when you exercise. 2. Increased swelling in your leg or knee; pain or swelling of the calf muscle in either lower leg. 3. Any fluid drainage from the incision. 4. Shortness of breath or chest pain. B. Please call [facility] at if you have any concerns or questions about your operation or recovery. The doctor or his nurse will return your call promptly. C. You must take antibiotics before dental work, bladder, bowel or other surgery. Your doctor will provide you with a permanent care to carry describing this precaution. IMPORTANT: * REMEMBER TO TAKE ASPIRIN, 81 MG, TWICE DAILY FOR 4 WEEKS UNLESS OTHERWISE DIRECTED. THIS IS YOUR BLOOD THINNER. * HIGH RISK PATIENTS MAY BE PRESCRIBED A STRONGER BLOOD THINNER. THIS WILL BE PROVIDED AT DISCHARGE. * CALL IF INCREASED PAIN, REDNESS, DRAINAGE OR FEVER GREATER THAT 101. * WEAR JEWEL HOSE 20 HOURS PER DAY FOR 2 WEEKS. This is a large suction dressing covering your incision. This will help pull any excess drainage from the wound and allow your incision to heal properly. You may shower with this if you can keep the unit outside of the shower. If any bleeding or leakage is noted please call your doctor's office. This will remain on your incision for 7 days and then should be removed. This can be done yourself or by the home nursing staff if applicable. The entire unit is disposable once removed. Once removed, keep incision clean and dry. If redness or drainage is noted, please call your surgeon. IF INCISION IS LEAKING THROUGH DRESSING, CALL THE OFFICE . FOLLOW UP VISIT: If appointment is not already scheduled: Please call [facility] to make a follow-up appointment for 2 weeks after your surgery at . Pending Studies at Discharge: No Stand-Alone Forms: My [facility] [employer], Opioid Pain Management, Smoking Cessation Medications and DC Order Prescriptions: New Xarelto 10 mg Tablet 10 mg PO DAILY Qty: 30 RF: 0 acetaminophen 500 mg Tablet 1,000 mg PO Q8H Qty: 60 RF: 0 oxycodone 5 mg Tablet 5 - 10 mg PO .Q4H-6H MDD 6 PRN (Reason: pain) Qty: 30 RF: 0 Continued omega-3 acid ethyl esters 1 gram capsule 2 cap PO QAM RF: 0 gabapentin 300 mg capsule 600 mg PO TID RF: 0 levothyroxine 100 mcg tablet 150 mcg PO QAM RF: 0 venlafaxine 150 mg capsule,extended release 24hr 150 mg PO QAM RF: 0 venlafaxine 75 mg capsule,extended release 24hr 75 mg PO QAM RF: 0 atorvastatin 40 mg tablet 80 mg PO QAM RF: 0 multivitamin [Daily Multi-Vitamin] tablet 1 tab PO QAM RF: 0 hydrochlorothiazide 25 mg tablet 25 mg PO QAM RF: 0 trazodone 50 mg tablet 100 mg PO HS PRN (Reason: Sleep) RF: 0 candesartan 16 mg tablet 16 mg PO QAM RF: 0 garlic 1,000 mg capsule 2,000 mg PO QAM RF: 0 potassium gluconate 600 mg (99 mg) tablet 600 mg PO QAM RF: 0 metoprolol succinate 25 mg Tablet Extended Release 24 Hr 25 mg PO QAM RF: 0 Botox Injections 1 dose INJ UD RF: 0 Discontinued acetaminophen [Tylenol Extra Strength] 500 mg Tablet 1,000 mg PO BID PRN (Reason: Pain) RF: 0 Discharge Orders: Discharge Order (Routine); Ordered 10/31/19 Ordered By: Grant Carreon/Other Patient Handouts: Surgery Prevent DVT After Admission Data Admit Date/Time: 10/29/19 13:07 Attending Provider: Gene Faith Admit Provider: Gene Faith Primary Care Provider: Ariel Scott Other Interventions: Discharge Summary Assessment (RN) Last Done: 10/31/19 09:29 DC Date/Time DO NOT enter until pt leaves facility: 10/31/19 12:54
== END 2019-10-31 12:54 | disposition home or self-care (01) | DRG 470 ==
LOC: ASU 08:53 → 3E 13:07